=== PATIENT | male | born 1975 | race Caucasian/White ===

== ENCOUNTER 2018-04-04 07:43 | Day surgery (SDC) | payer OTHER ==
[2018-04-03 15:41] VITALS: BMI 25.4
[2018-04-04] MEDS ORDERED: MIDAZOLAM HCL 2 MG/2 ML SINGLE DOSE VIAL ONE (10:10)
[2018-04-04] MEDS ORDERED: LIDOCAINE HCL 2% JELLY 10 ML CARTRIDGE ONE (10:58)
[2018-04-04 11:07] VITALS: TEMP 97.7
[2018-04-04 11:43] VITALS: PULSE 88
[2018-04-04 11:50] VITALS: BP 131/94
--- NOTE | 2018-04-05 19:02 | PATH ---
Surgical Pathology Report Patient Name: SHAYLA HOOPER [facility]. Rec. #: [id number] /Age/Gender: 1975 (Age: 42) / M Account: [id number] Location: U-ENDOSCOPY Taken: 04/04/2018 Received: 04/04/2018 Reported: 04/05/2018 Physicians: Timoteo Gale M.D. Specimen(s) Received A: POLYP RECTUM B: POLYP DISTAL DESCENDING COLON Clinical History Anemia, rectal bleeding Postoperative diagnosis: Prolapse, hemorrhoids, polyp rectum, descending colon polyp, redundant sigmoid Final Diagnosis A. RECTUM, POLYP, POLYPECTOMY: INFLAMMATORY POLYP. B. DISTAL DESCENDING COLON, POLYPECTOMY: HYPERPLASTIC POLYP. Electronically Signed Donna Spivey M.D. Gross Description A. Received in formalin, labeled "polyp rectum" is a shaw, irregular portion of soft tissue measuring 0.4 cm. in greatest dimension. The specimen is submitted in toto in one cassette. B. Received in formalin, labeled "distal descending" is a shaw, irregular portion of soft tissue measuring 0.4 cm. in greatest dimension. The specimen is submitted in toto in one cassette. DL/04/04/2018 saudi04/04/2018
== END 2018-04-04 11:49 | disposition home or self-care (01) ==
LOC: JASU-ENDO 07:43
PROVIDERS: ATTEND Internal Medicine Gastroenterology
PROC: 0DBE8ZX Excision of Large Intestine, Via Natural or Artificial Opening Endoscopic, Diagnostic (ICD-10-PCS; 2018-04-04)
PROC: 0DBP8ZX Excision of Rectum, Via Natural or Artificial Opening Endoscopic, Diagnostic (ICD-10-PCS; principal; 2018-04-04 09:15)
DX: K92.1 Melena (principal); D12.6 Benign neoplasm of colon, unspecified; K62.1 Rectal polyp
CPT/HCPCS: 88305-TC

== ENCOUNTER 2019-01-05 12:42 | Emergency (ER) | payer OTHER ==
[2019-01-05 12:53] VITALS: BMI 30.5
--- NOTE | 2019-01-05 13:32 | PDOC ---
History of Present Illness - General Chief Complaint: Injury Stated Complaint: FACE SWELLING Time Seen by Provider: 01/05/19 13:22 History Source: Parent(s) - History of Present Illness Is this a multiple visit Asthma Patient?: No Past History - Past Medical History Allergies/Adverse Reactions: Allergies Allergy/AdvReac Type Severity Reaction Status Date / Time No Known Allergies Allergy Verified 01/05/19 12:54 Home Medications: Ambulatory Orders Cyanocobalamin [Vitamin B12 -] 100 mcg PO DAILY 04/03/18 Divalproex Sprinkle [Depakote Sprinkle -] 125 mg PO BID 04/03/18 Enalapril Maleate [Vasotec] 2.5 mg PO HS 04/03/18 Metformin HCl [Glucophage] 500 mg PO BID 04/03/18 [place]-3 Fatty Acids/Fish Oil [Fish Oil 1,000 mg Capsule] 1 each PO DAILY Rosuvastatin [Crestor -] 40 mg PO DAILY 04/03/18 predniSONE [Deltasone -] 60 mg PO DAILY 01/05/19 Anemia: Yes Asthma: No Cancer: No Cardiac Disorders: No CVA: No COPD: No CHF: No Dementia: No Diabetes: No GI Disorders: No Disorders: No HTN: Yes Hypercholesterolemia: Yes Liver Disease: Yes (FATTY LIVER) Seizures: No Thyroid Disease: No Other medical history: MENTAL RETARDATION - Psycho Social/Smoking Cessation Hx Smoking History: Never smoked Hx Alcohol Use: No Drug/Substance Use Hx: No Substance Use Type: None Hx Substance Use Treatment: No Review of Systems - Review of Systems Able to Perform ROS?: No Constitutional: No: Fever Respiratory: No: Cough, Wheezing ABD/GI: No: Diarrhea, Vomiting : No: Hematuria Integumentary: No: Rash *Physical Exam - Vital Signs Last Vital Signs Temp Pulse Resp BP Pulse Ox 98 F 109 H 18 140/95 98 01/05/19 12:48 01/05/19 12:48 01/05/19 12:48 01/05/19 12:48 01/05/19 12:48 - Physical Exam General Appearance: Yes: Appropriately Dressed HEENT: positive: Other (droop to L mouth and unable to close L eye fully in ED) Neck: positive: Supple Respiratory/Chest: positive: Lungs Clear, Normal Breath Sounds. negative: Respiratory Distress Cardiovascular: positive: Regular Rate, S1, S2 Gastrointestinal/Abdominal: positive: Soft. negative: Distended Integumentary: positive: Dry, Warm. negative: Rash Neurologic: positive: Alert, Other (mildly agitated here) ED Treatment Course - LABORATORY CBC & Chemistry Diagram: 01/05/19 14:15 01/05/19 14:15 - RADIOLOGY Radiology Studies Ordered: Category Date Time Status HEAD CT WITHOUT CONTRAST [CT] Stat CT Scan 01/05/19 13:29 Ordered Medical Decision Making - Medical Decision Making 01/05/19 13:31 43-year-old male, severe MR, NIDDM, on multiple psych meds, brought in by family for AMS. States patient was started on vatrex (1g TID) and prednisone ( 60mg daily) 4 days ago after presenting to PMD with L facial droop and inability to close L eye. Per family patient appears more agitated than usual since yesterday, since improved w/ psych meds. No fever, vomiting, diarrhea or rash. 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 Recommend if discharged, to decrease prednisone dose (currently on 60mg daily-last took yesterday am) and have pt f/u with SHAHNAZ Berman in am as d/w family 01/05/19 16:15 Labs remarkable for white count of 17, suspect most likely 2/2 to prednisone versus infection. Creatinine 1.6, no old to compare. Based on calculations creatinine clearance >52 (Pt [place]ic) but given increased agitation, will reduce valtrex dose to 1 g every 12 hours as d/w Dr Terrell. Upon discharge will have patient start tapering prednisone to 40 mg. Family aware that they will need to call his PMD first thing in the morning for further instructions. At this time patient signed out to LIOR Araujo pending CT read. 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 His kidney test was also mildly elevated. Please start tapering the prednisone to 40 mg daily and Valtrex to 1 g twice a day and call PMD in the a.m. to discuss further recommendations. If symptoms worsen, return to the ER - Post Discharge Activity
[2019-01-05] MEDS ORDERED: LORazepam 2 MG/ML SDV VIAL ONE ×2 (14:58→15:33)
[2019-01-05 15:21] LABS: BASO % 0.2 % (0-2.0); EOS % 0.1 % (0-4.5); HEMATOCRIT 45.2 % (35.4-49); HEMOGLOBIN 14.9 GM/dL (11.7-16.9); LYMPH % 20.6 % (8-40); MCH 29.6 pg (25.7-33.7); MEAN CELL VOLUME 89.7 fl (80-96); MEAN PLT VOLUME 10.8 fl (7.5-11.1); MONO % 9.9 % (3.8-10.2); NEUT % 69.2 % (42.8-82.8); PLATELET COUNT 195 K/MM3 (134-434); RBC 5.04 M/mm3 (4.00-5.60); RDW 13.8 % (11.9-15.9); WHITE BLOOD COUNT 17.6 K/mm3 (4.0-10.0)
[2019-01-05 15:49] LABS: ALBUMIN 3.7 g/dl (3.4-5.0); BILIRUBIN,TOTAL 0.1 mg/dL (0.2-1); BLOOD UREA NITROGEN 29.9 mg/dL (7-18); CALCIUM 9.6 mg/dL (8.5-10.1); CREATININE 1.6 mg/dL (0.55-1.3); TOT PROT 7.4 g/dl (6.4-8.2)
[2019-01-05 16:14] LABS: ANISOCYTOSIS 0; MACROCYTOSIS 0; OVALOCYTE 1+; PLATELET ESTIMATE NORMAL
[2019-01-05 17:11] VITALS: BP 142/80; PULSE 98; TEMP 98.1
--- NOTE | 2019-01-05 17:11 | PDOC ---
*Physical Exam - Vital Signs Last Vital Signs Temp Pulse Resp BP Pulse Ox 98 F 109 H 18 140/95 98 01/05/19 12:48 01/05/19 12:48 01/05/19 12:48 01/05/19 12:48 01/05/19 12:48 ED Treatment Course - LABORATORY CBC & Chemistry Diagram: 01/05/19 14:15 01/05/19 14:15 - ADDITIONAL ORDERS Additional order review: Laboratory Results 01/05/19 14:15 Sodium 139 Potassium 5.0 Chloride 106 Carbon Dioxide 26 Anion Gap 7 L BUN 29.9 H Creatinine 1.6 H Est GFR (CKD-EPI)AfAm 60.26 Est GFR (CKD-EPI)NonAf 51.99 Random Glucose 115 H Calcium 9.6 Total Bilirubin 0.1 L AST 7 L ALT 19 Alkaline Phosphatase 88 Total Protein 7.4 Albumin 3.7 01/05/19 14:15 RBC 5.04 MCV 89.7 MCHC 33.0 RDW 13.8 MPV 10.8 Neutrophils % 69.2 Lymphocytes % 20.6 Monocytes % 9.9 Eosinophils % 0.1 Basophils % 0.2 - Medications Given in the ED: ED Medications Discontinued Medications Generic Name Dose Route Start Last Admin Trade Name Freq PRN Reason Stop Dose Admin Lorazepam 0.5 mg 01/05/19 14:56 01/05/19 15:00 Ativan Injection - IM 01/05/19 14:57 0.5 mg ONCE ONE Administration Lorazepam 0.5 mg 01/05/19 15:35 01/05/19 15:38 Ativan Injection - IM 01/05/19 15:36 0.5 mg ONCE ONE Administration Medical Decision Making - Medical Decision Making 01/05/19 17:09 Patient endorsed to me to follow CT scan and disposition. CT reported as negative no acute findings I discussed the physical exam findings, ancillary test results and final diagnoses with the patient. I answered all of the patient's questions. The patient was satisfied with the care received and felt comfortable with the discharge plan and treatment plan. The Patient agrees to follow up with the primary care physician within 24-72 hours. 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 His kidney test was also mildly elevated. Please start tapering the prednisone to 40 mg daily and Valtrex to 1 g twice a day and call PMD in the a.m. to discuss further recommendations. If symptoms worsen, return to the ER - Post Discharge Activity
== END 2019-01-05 17:13 | disposition home or self-care (01) ==
LOC: JER 12:42
PROC: 3E023NZ Introduction of Analgesics, Hypnotics, Sedatives into Muscle, Percutaneous Approach (ICD-10-PCS; principal; 2019-01-05)
PROC: 3E023NZ Introduction of Analgesics, Hypnotics, Sedatives into Muscle, Percutaneous Approach (ICD-10-PCS; 2019-01-05)
DX: R45.1 Restlessness and agitation (principal); G51.0 Bell's palsy; F72 Severe intellectual disabilities; I10 Essential (primary) hypertension; D64.9 Anemia, unspecified; K76.0 Fatty (change of) liver, not elsewhere classified
CPT/HCPCS: 36415; 70450-TC; 80053; 85025; 99283-25

== ENCOUNTER 2019-04-19 08:15 | Emergency (ER) | payer OTHER ==
--- NOTE | 2019-04-19 08:34 | PDOC ---
History of Present Illness - General Chief Complaint: Edema Stated Complaint: EDEMA LT LEG Time Seen by Provider: 04/19/19 08:32 - History of Present Illness Initial Comments: 04/19/19 08:33 The patient denies chest pain, shortness of breath, headache and dizziness. Denies fever, chills, nausea, vomit, diarrhea and constipation. Denies dysuria, frequency, urgency and hematuria. Past History - Past Medical History Allergies/Adverse Reactions: Allergies Allergy/AdvReac Type Severity Reaction Status Date / Time prednisone Allergy Severe Verified 04/19/19 08:21 Home Medications: Ambulatory Orders Cyanocobalamin [Vitamin B12 -] 100 mcg PO DAILY 04/03/18 Divalproex Sprinkle [Depakote Sprinkle -] 125 mg PO BID 04/03/18 Enalapril Maleate [Vasotec] 2.5 mg PO HS 04/03/18 Metformin HCl [Glucophage] 500 mg PO BID 04/03/18 [place]-3 Fatty Acids/Fish Oil [Fish Oil 1,000 mg Capsule] 1 each PO DAILY 04/03/18 Rosuvastatin [Crestor -] 40 mg PO DAILY 04/03/18 predniSONE [Deltasone -] 60 mg PO DAILY 01/05/19 Anemia: Yes Asthma: No Cancer: No Cardiac Disorders: No CVA: No COPD: No CHF: No Dementia: No Diabetes: No GI Disorders: No Disorders: No HTN: Yes Hypercholesterolemia: Yes Liver Disease: Yes (FATTY LIVER) Seizures: No Thyroid Disease: No - Psycho Social/Smoking Cessation Hx Smoking History: Never smoked Hx Alcohol Use: No Drug/Substance Use Hx: No Substance Use Type: None Hx Substance Use Treatment: No Review of Systems - Review of Systems Comments:: 04/19/19 08:33 GENERAL/CONSTITUTIONAL: No fever or chills. No weakness. HEAD, EYES, EARS, NOSE AND THROAT: No change in vision. No ear pain or discharge. No sore throat. CARDIOVASCULAR: No chest pain or shortness of breath RESPIRATORY: No cough, wheezing, or hemoptysis. GASTROINTESTINAL: No nausea, vomiting, diarrhea or constipation. GENITOURINARY: No dysuria, frequency, or change in urination. MUSCULOSKELETAL: No joint or muscle swelling or pain. No neck or back pain. SKIN: No rash NEUROLOGIC: No headache, vertigo, loss of consciousness, or change in strength/sensation. ENDOCRINE: No increased thirst. No abnormal weight change HEMATOLOGIC/LYMPHATIC: No anemia, easy bleeding, or history of blood clots. ALLERGIC/IMMUNOLOGIC: No hives or skin allergy. *Physical Exam - Vital Signs Last Vital Signs Temp Pulse Resp BP Pulse Ox 98.1 F 124 H 18 146/90 97 04/19/19 08:19 04/19/19 08:19 04/19/19 08:19 04/19/19 08:19 04/19/19 08:19 - Physical Exam 04/19/19 08:33 GENERAL: Awake, alert, and fully oriented, in no acute distress HEAD: No signs of trauma, normocephalic, atraumatic EYES: PERRLA, EOMI, sclera anicteric, conjunctiva clear ENT: Auricles normal inspection, hearing grossly normal, nares patent, oropharynx clear without exudates. Moist mucosa NECK: Normal ROM, supple, no lymphadenopathy, JVD, or masses LUNGS: No distress, speaks full sentences, clear to auscultation bilaterally HEART: Regular rate and rhythm, normal S1 and S2, no murmurs, rubs or gallops, peripheral pulses normal and equal bilaterally. ABDOMEN: Soft, nontender, normoactive bowel sounds. No guarding, no rebound. No masses EXTREMITIES: Normal inspection, Normal range of motion, no edema. No clubbing or cyanosis. NEUROLOGICAL: Cranial nerves II through XII grossly intact. Normal speech, normal gait, no focal sensorimotor deficits SKIN: Warm, Dry, normal turgor, no rashes or lesions noted. Discharge - Follow up/Referral Referrals: Sara Banegas MD [Primary Care Provider] - - Patient Discharge Instructions - Post Discharge Activity
[2019-04-19 08:35] VITALS: TEMP 98.1; BMI 24.7
[2019-04-19] MEDS ORDERED: KETAMINE HCL 200 MG/20 ML VIAL IVPUSH ONE (08:46)
[2019-04-19] MEDS ORDERED: KETAMINE HCL 500 MG/10 ML VIAL IM ONE ×2 (08:50→09:43)
[2019-04-19] MEDS ORDERED: KETAMINE HCL 500 MG/10 ML VIAL ONE (09:03)
--- NOTE | 2019-04-19 09:43 | PDOC ---
History of Present Illness - General Chief Complaint: Edema Stated Complaint: EDEMA LT LEG Time Seen by Provider: 04/19/19 08:32 - History of Present Illness Initial Comments: 04/19/19 08:52 43 yo M severe MR, diabetes, HLD, sent by PCP for L leg swelling. All history per father and mother, patient unable to provide history or ROS. Swelling has been present for the past 3 weeks, and they have tried to get outpatient ultrasound, but patient has been too agitated to get the ultrasound. Sent today for help with agitation. Unable to get ROS. Past History - Past Medical History Allergies/Adverse Reactions: Allergies Allergy/AdvReac Type Severity Reaction Status Date / Time prednisone Allergy Severe Verified 04/19/19 08:21 Home Medications: Ambulatory Orders Cyanocobalamin [Vitamin B12 -] 100 mcg PO DAILY 04/03/18 Divalproex Sprinkle [Depakote Sprinkle -] 125 mg PO BID 04/03/18 Enalapril Maleate [Vasotec] 2.5 mg PO HS 04/03/18 Metformin HCl [Glucophage] 500 mg PO BID 04/03/18 [place]-3 Fatty Acids/Fish Oil [Fish Oil 1,000 mg Capsule] 1 each PO DAILY 04/03/18 Rosuvastatin [Crestor -] 40 mg PO DAILY 04/03/18 predniSONE [Deltasone -] 60 mg PO DAILY 01/05/19 Anemia: Yes Asthma: No Cancer: No Cardiac Disorders: No CVA: No COPD: No CHF: No Dementia: No Diabetes: No GI Disorders: No Disorders: No HTN: Yes Hypercholesterolemia: Yes Liver Disease: Yes (FATTY LIVER) Seizures: No Thyroid Disease: No - Psycho Social/Smoking Cessation Hx Smoking History: Never smoked Hx Alcohol Use: No Drug/Substance Use Hx: No Substance Use Type: None Hx Substance Use Treatment: No Review of Systems - Review of Systems Comments:: 04/19/19 09:47 Unable to assess ROS 2/2 severe MR. *Physical Exam - Vital Signs Last Vital Signs Temp Pulse Resp BP Pulse Ox 98.1 F 124 H 18 146/90 97 04/19/19 08:19 04/19/19 08:19 04/19/19 08:19 04/19/19 08:19 04/19/19 08:19 - Physical Exam 04/19/19 09:48 Gen: agitated Neuro: PERRLA, otherwise unable to cooperate with neurological exam HEENT: atraumatic, normocephalic Neck: trachea midline, supple CV: regular rate, regular rhythm, no murmurs, rubs, or gallops Pulm: CTA b/l, no wheezing Abd: soft, non-distended, non-tender MSK: full ROM, intact pulses Extr: L calf swelling without rubor or calor, no deformities Skin: warm, dry ED Treatment Course - RADIOLOGY Radiology Studies Ordered: Category Date Time Status DUPLEX VASCUL US-1 LEG [US] Stat Ultrasound 04/19/19 08:51 Ordered Medical Decision Making - Medical Decision Making 04/19/19 09:49 R/o L DVT. Ddx includes Sylvester's cyst, cellulitis less likely considering lack of rubor or calor. - ketamine - Duplex L leg 04/19/19 10:49 US without DVT, will dc for further outpatient management once patient able to walk. Discharge - Discharge Information Problems reviewed: Yes Clinical Impression/Diagnosis: Left leg swelling Condition: Stable Disposition: HOME - Admission No - Follow up/Referral Referrals: Sara Banegas MD [Primary Care Provider] - - Patient Discharge Instructions Additional Instructions: You were seen with left leg swelling. An ultrasound was performed, which did not show a clot. Please follow up with your primary care doctor within one week. Return to the ED if you develop new or worsening symptoms. - Post Discharge Activity
[2019-04-19] MEDS ORDERED: KETAMINE HCL 500 MG/10 ML VIAL IV ONE (09:58)
--- NOTE | 2019-04-19 10:44 | PDOC ---
Attending Attestation - Resident Resident Name: Dashawn Smith - ED Attending Attestation I have performed the following: I have examined & evaluated the patient, The case was reviewed & discussed with the resident, I agree w/resident's findings & plan, Exceptions are as noted - HPI HPI: 04/19/19 10:42 43-year-old male with severe developmental delay, hyperlipidemia, history of self-injurious behavior presents for atraumatic left lower extremity edema which was unable to be evaluated by an outpatient ultrasound due to patient agitation. - Physicial Exam PE: 04/19/19 10:42 Patient is awake and alert, nontoxic-appearing, in no distress Microcephalic, abrasions are noted to the bridge of the nose and forehead; + Left facial edema over the angle of the mandible consistent with soft tissue swelling PERRDANIEL, EOMI CTA RRR + Left lower extremity edema (+1) - Medical Decision Making 04/19/19 10:44 43-year-old male with severe developmental delay, hyperlipidemia, self-injurious behavior presents with left lower extremity edema. We discussed the risk and benefit of administration of IM ketamine to the patient's family. They consented. Patient underwent Doppler ultrasound left lower extremity which showed no evidence of DVT or Sylvester's cyst. Patient tolerated procedure well. Will discharge.
[2019-04-19 10:56] VITALS: BP 141/96; PULSE 108
== END 2019-04-19 11:12 | disposition home or self-care (01) ==
LOC: JER 08:15
PROC: 3E023BZ Introduction of Anesthetic Agent into Muscle, Percutaneous Approach (ICD-10-PCS; principal; 2019-04-19)
DX: R60.0 Localized edema (principal); F72 Severe intellectual disabilities; Z91.5 Personal history of self-harm; R45.1 Restlessness and agitation; E78.5 Hyperlipidemia, unspecified; Z88.8 Allergy status to other drugs, medicaments and biological substances
CPT/HCPCS: 93971-TC; 99284-25

== ENCOUNTER 2021-07-16 04:31 | Inpatient (IN) | payer OTHER ==
[2021-07-16] MEDS ORDERED: HALOPERIDOL LACTATE 5 MG/ML IM ONE (04:53)
[2021-07-16] MEDS ORDERED: LORazepam 2 MG/ML SDV VIAL IM ONE (04:53)
[2021-07-16] MEDS ORDERED: HALOPERIDOL LACTATE 5 MG/ML ONE (04:55)
[2021-07-16] MEDS ORDERED: SODIUM CHLORIDE 0.9% 500 ML INFUS.BAG IV ONE (05:30)
[2021-07-16 06:55] LABS: HEMATOCRIT 28.1 % (35.4-49); HEMOGLOBIN 9.2 GM/dL (11.7-16.9); MCH 31.5 pg (25.7-33.7); MCHC 32.9 g/dl (32.0-35.9); MEAN CELL VOLUME 95.8 fl (80-96); MEAN PLT VOLUME 10.1 fl (7.5-11.1); PLATELET COUNT 271 10^3/uL (134-434); RBC 2.93 M/mm3 (4.00-5.60); RDW 14.7 % (11.9-15.9); WHITE BLOOD COUNT 12.2 K/mm3 (4.0-10.0)
[2021-07-16 07:01] LABS: EPI CELLS 7 /uL (0-25.1); HYALINE CASTS 9 /uL (0-3.1); URINE APPEARANCE CLOUDY; URINE BACTERIA 0 /uL (0-1359); URINE BILIRUBIN 1+ (NEGATIVE); URINE COLOR DK YELLOW; URINE GLUCOSE (UA) NEGATIVE (NEGATIVE); URINE KETONE TRACE (NEGATIVE); URINE LEUK ESTERASE NEGATIVE (NEGATIVE); URINE NITRITE NEGATIVE (NEGATIVE); URINE PROTEIN 1+ (NEGATIVE); URINE WBC 13 /uL (0-25.8)
[2021-07-16 07:22] LABS: ALBUMIN 2.1 g/dl (3.4-5.0); CALCIUM 7.8 mg/dL (8.5-10.1)
[2021-07-16 07:24] LABS: CREATININE 2.8 mg/dL (0.55-1.3)
[2021-07-16 07:26] LABS: BILIRUBIN,TOTAL 0.8 mg/dL (0.2-1)
[2021-07-16 07:32] LABS: BLOOD UREA NITROGEN 52.4 mg/dL (7-18)
[2021-07-16 09:05] LABS: URINE RBC 48.5 /uL (0-23.9)
[2021-07-16 10:02] LABS: PLATELET ESTIMATE NORMAL
[2021-07-16] MEDS ORDERED: SODIUM CHLORIDE 1,000 ML IV SCH (11:00)
[2021-07-16] MEDS: INSULIN SLIDING SCALE (NOVOLOG) 1 VIAL SQ SCH ×3 (12:19→23:33)
[2021-07-16] MEDS ORDERED: PANTOPRAZOLE SODIUM 40 MG VIAL ONE (12:21)
[2021-07-16] MEDS: PANTOPRAZOLE SODIUM 40 MG VIAL IVPUSH SCH (12:50)
[2021-07-16 13:46] LABS: HEMOGLOBIN 10.2 GM/dL (11.7-16.9); MCH 31.4 pg (25.7-33.7); MCHC 32.9 g/dl (32.0-35.9); MEAN CELL VOLUME 95.4 fl (80-96); MEAN PLT VOLUME 9.3 fl (7.5-11.1); PLATELET COUNT 300 10^3/uL (134-434); RBC 3.25 M/mm3 (4.00-5.60); RDW 14.9 % (11.9-15.9); WHITE BLOOD COUNT 13.9 K/mm3 (4.0-10.0)
[2021-07-16 14:39] LABS: ALBUMIN 2.3 g/dl (3.4-5.0); BLOOD UREA NITROGEN 48.9 mg/dL (7-18); CALCIUM 8.4 mg/dL (8.5-10.1)
[2021-07-16 14:43] LABS: BILIRUBIN,TOTAL 0.9 mg/dL (0.2-1); CREATININE 2.2 mg/dL (0.55-1.3)
[2021-07-16 14:45] LABS: TOT PROT 5.5 g/dl (6.4-8.2)
[2021-07-16] MEDS: SODIUM CHLORIDE 1,000 ML IV SCH (17:00)
[2021-07-17] MEDS: PANTOPRAZOLE SODIUM 40 MG VIAL IVPUSH SCH ×3 (00:58→21:50)
[2021-07-17 01:35] VITALS: BMI 26.2
[2021-07-17] MEDS: SODIUM CHLORIDE 1,000 ML IV SCH ×2 (05:50→17:10)
[2021-07-17] MEDS: INSULIN SLIDING SCALE (NOVOLOG) 1 VIAL SQ SCH ×4 (06:03→21:57)
[2021-07-17 09:59] LABS: HEMATOCRIT 29.1 % (35.4-49); HEMOGLOBIN 9.6 GM/dL (11.7-16.9); MCH 31.7 pg (25.7-33.7); MCHC 33.1 g/dl (32.0-35.9); MEAN CELL VOLUME 95.7 fl (80-96); MEAN PLT VOLUME 9.4 fl (7.5-11.1); PLATELET COUNT 290 10^3/uL (134-434); RBC 3.04 M/mm3 (4.00-5.60); RDW 14.6 % (11.9-15.9); WHITE BLOOD COUNT 13.9 K/mm3 (4.0-10.0)
[2021-07-17 10:20] LABS: ALBUMIN 2.2 g/dl (3.4-5.0); CALCIUM 8.8 mg/dL (8.5-10.1)
[2021-07-17 10:23] LABS: BILIRUBIN,DIRECT 0.6 mg/dL (0.0-0.2); CREATININE 1.5 mg/dL (0.55-1.3)
[2021-07-17 10:25] LABS: BILIRUBIN,TOTAL 0.9 mg/dL (0.2-1); TOT PROT 5.4 g/dl (6.4-8.2)
[2021-07-18] MEDS: INSULIN SLIDING SCALE (NOVOLOG) 1 VIAL SQ SCH ×4 (06:08→23:00)
[2021-07-18] MEDS: SODIUM CHLORIDE 1,000 ML IV SCH ×2 (06:13→16:47)
[2021-07-18 08:38] LABS: HEMATOCRIT 30.5 % (35.4-49); MCH 31.6 pg (25.7-33.7); MCHC 32.7 g/dl (32.0-35.9); MEAN CELL VOLUME 96.7 fl (80-96); MEAN PLT VOLUME 9.2 fl (7.5-11.1); PLATELET COUNT 309 10^3/uL (134-434); RBC 3.15 M/mm3 (4.00-5.60); RDW 15.5 % (11.9-15.9); WHITE BLOOD COUNT 10.8 K/mm3 (4.0-10.0)
[2021-07-18 09:21] LABS: ALBUMIN 2.3 g/dl (3.4-5.0); BLOOD UREA NITROGEN 28.3 mg/dL (7-18); CREATININE 1.1 mg/dL (0.55-1.3)
[2021-07-18 09:22] LABS: BILIRUBIN,TOTAL 0.8 mg/dL (0.2-1); CALCIUM 9.1 mg/dL (8.5-10.1); TOT PROT 5.8 g/dl (6.4-8.2)
[2021-07-18] MEDS: DIVALPROEX SODIUM 125 MG SPRINKLE CAPS PO SCH ×4 (10:38→22:54)
[2021-07-18] MEDS: PANTOPRAZOLE SODIUM 40 MG VIAL IVPUSH SCH ×2 (10:38→22:54)
[2021-07-18 15:17] LABS: PLATELET ESTIMATE ADEQUATE
[2021-07-19] MEDS: INSULIN SLIDING SCALE (NOVOLOG) 1 VIAL SQ SCH ×4 (06:01→21:14)
[2021-07-19] MEDS: PANTOPRAZOLE SODIUM 40 MG VIAL IVPUSH SCH ×3 (10:04→21:21)
[2021-07-19] MEDS: DIVALPROEX SODIUM 125 MG SPRINKLE CAPS PO SCH ×2 (10:04→21:13)
[2021-07-19 10:48] LABS: HEMOGLOBIN 10.4 GM/dL (11.7-16.9); MCH 30.5 pg (25.7-33.7); MCHC 31.6 g/dl (32.0-35.9); MEAN CELL VOLUME 96.6 fl (80-96); MEAN PLT VOLUME 9.4 fl (7.5-11.1); PLATELET COUNT 337 10^3/uL (134-434); RBC 3.42 M/mm3 (4.00-5.60); RDW 15.5 % (11.9-15.9); WHITE BLOOD COUNT 12.8 K/mm3 (4.0-10.0)
[2021-07-19 11:12] LABS: CALCIUM 9.3 mg/dL (8.5-10.1)
[2021-07-19 11:14] LABS: ALBUMIN 2.3 g/dl (3.4-5.0); BLOOD UREA NITROGEN 22.2 mg/dL (7-18)
[2021-07-19 11:15] LABS: CREATININE 0.9 mg/dL (0.55-1.3)
[2021-07-19 11:16] LABS: BILIRUBIN,TOTAL 0.9 mg/dL (0.2-1); TOT PROT 5.8 g/dl (6.4-8.2)
[2021-07-20] MEDS: INSULIN SLIDING SCALE (NOVOLOG) 1 VIAL SQ SCH ×4 (06:36→22:54)
[2021-07-20 09:57] LABS: HEMATOCRIT 31.9 % (35.4-49); HEMOGLOBIN 10.3 GM/dL (11.7-16.9); MCH 30.8 pg (25.7-33.7); MCHC 32.1 g/dl (32.0-35.9); MEAN CELL VOLUME 95.7 fl (80-96); MEAN PLT VOLUME 8.8 fl (7.5-11.1); PLATELET COUNT 325 10^3/uL (134-434); RBC 3.33 M/mm3 (4.00-5.60); RDW 15.5 % (11.9-15.9); WHITE BLOOD COUNT 12.8 K/mm3 (4.0-10.0)
[2021-07-20 10:17] LABS: CALCIUM 9.3 mg/dL (8.5-10.1)
[2021-07-20 10:19] LABS: ALBUMIN 2.3 g/dl (3.4-5.0)
[2021-07-20 10:21] LABS: BILIRUBIN,TOTAL 0.8 mg/dL (0.2-1); BLOOD UREA NITROGEN 21.7 mg/dL (7-18); TOT PROT 5.8 g/dl (6.4-8.2)
[2021-07-20] MEDS: DIVALPROEX SODIUM 125 MG SPRINKLE CAPS PO SCH ×2 (10:39→22:54)
[2021-07-20] MEDS: PANTOPRAZOLE SODIUM 40 MG VIAL IVPUSH SCH ×2 (10:39→22:55)
[2021-07-21] MEDS: INSULIN SLIDING SCALE (NOVOLOG) 1 VIAL SQ SCH ×4 (06:47→21:12)
[2021-07-21] MEDS: PANTOPRAZOLE SODIUM 40 MG VIAL IVPUSH SCH ×2 (10:43→21:10)
[2021-07-21] MEDS: DIVALPROEX SODIUM 125 MG SPRINKLE CAPS PO SCH ×2 (10:49→21:10)
[2021-07-21] MEDS ORDERED: ACETAMINOPHEN 325 MG TABLET (FP) PO PRN (16:38)
[2021-07-21] MEDS ORDERED: ACETAMINOPHEN 1000 MG/100 ML BAG IVPB ONE (16:56)
[2021-07-21] MEDS ORDERED: PIPERACILLIN/TAZOBACTAM 3.375 GM VIAL IVPB ONE (17:27)
[2021-07-21] MEDS ORDERED: DEXTROSE 5%-WATER - 50 ML IVPB ONE (17:27)
[2021-07-21] MEDS: PIPERACILLIN/TAZOB 3.375 GM 3.375 GM in DEXTROSE 5%-WATER - 50 ML IVPB SCH (18:19)
[2021-07-21] MEDS: DEXTROSE 5%-0.45% SALINE 1,000 ML IV SCH (20:25)
[2021-07-22] MEDS ORDERED: PIPERACILLIN/TAZOBACTAM 3.375 GM VIAL IVPB ONE ×3 (00:41→17:10)
[2021-07-22] MEDS ORDERED: DEXTROSE 5%-WATER - 50 ML IVPB ONE ×3 (00:41→17:10)
[2021-07-22] MEDS: PIPERACILLIN/TAZOB 3.375 GM 3.375 GM in DEXTROSE 5%-WATER - 50 ML IVPB SCH ×3 (01:05→17:19)
[2021-07-22] MEDS: INSULIN SLIDING SCALE (NOVOLOG) 1 VIAL SQ SCH ×4 (06:17→23:53)
[2021-07-22 09:33] LABS: BASO % 0.9 % (0-2.0); HEMATOCRIT 28.7 % (35.4-49); HEMOGLOBIN 9.4 GM/dL (11.7-16.9); MCH 31.4 pg (25.7-33.7); MCHC 32.7 g/dl (32.0-35.9); MEAN PLT VOLUME 9.1 fl (7.5-11.1); MONO % 13.7 % (3.8-10.2); NEUT % 66.4 % (42.8-82.8); PLATELET COUNT 295 10^3/uL (134-434); RBC 2.99 M/mm3 (4.00-5.60); RDW 16.4 % (11.9-15.9); WHITE BLOOD COUNT 13.8 K/mm3 (4.0-10.0)
[2021-07-22 09:59] LABS: CALCIUM 8.7 mg/dL (8.5-10.1)
[2021-07-22 10:00] LABS: ALBUMIN 2.1 g/dl (3.4-5.0); BLOOD UREA NITROGEN 17.6 mg/dL (7-18)
[2021-07-22 10:03] LABS: CREATININE 1.1 mg/dL (0.55-1.3)
[2021-07-22 10:05] LABS: BILIRUBIN,TOTAL 1.2 mg/dL (0.2-1); TOT PROT 5.6 g/dl (6.4-8.2)
[2021-07-22] MEDS: PANTOPRAZOLE SODIUM 40 MG VIAL IVPUSH SCH ×2 (10:37→23:33)
[2021-07-22] MEDS: DIVALPROEX SODIUM 125 MG SPRINKLE CAPS PO SCH ×2 (10:37→23:33)
[2021-07-22] MEDS ORDERED: ACETAMINOPHEN 1000 MG/100 ML BAG IVPB PRN (12:52)
[2021-07-22] MEDS: DEXTROSE 5%-0.45% SALINE 1,000 ML IV SCH ×2 (14:44→23:20)
[2021-07-22 15:39] LABS: EPI CELLS 3 /uL (0-25.1); HYALINE CASTS 0 /uL (0-3.1); PH,URINE 6.5 (5.0-8.0); URINE APPEARANCE TURBID; URINE BACTERIA 7464 /uL (0-1359); URINE BILIRUBIN 2+ (NEGATIVE); URINE COLOR DK YELLOW; URINE GLUCOSE (UA) NEGATIVE (NEGATIVE); URINE KETONE NEGATIVE (NEGATIVE); URINE LEUK ESTERASE 2+ (NEGATIVE); URINE NITRITE POSITIVE (NEGATIVE); URINE PROTEIN TRACE (NEGATIVE); URINE UROBILINOGEN 4.0 E.U/dl mg/dL (0.2-1.0); URINE WBC 25 /uL (0-25.8)
[2021-07-22 15:49] LABS: URINE RBC 87 /uL (0-23.9); YEAST NEGATIVE (NEGATIVE)
[2021-07-23] MEDS ORDERED: PIPERACILLIN/TAZOBACTAM 3.375 GM VIAL IVPB ONE ×3 (02:29→17:07)
[2021-07-23] MEDS ORDERED: DEXTROSE 5%-WATER - 50 ML IVPB ONE ×3 (02:29→17:07)
[2021-07-23] MEDS: PIPERACILLIN/TAZOB 3.375 GM 3.375 GM in DEXTROSE 5%-WATER - 50 ML IVPB SCH ×3 (02:52→17:40)
[2021-07-23] MEDS: INSULIN SLIDING SCALE (NOVOLOG) 1 VIAL SQ SCH ×4 (06:19→22:08)
[2021-07-23] MEDS: DEXTROSE 5%-0.45% SALINE 1,000 ML IV SCH ×2 (06:21→22:08)
[2021-07-23] MEDS: PANTOPRAZOLE SODIUM 40 MG VIAL IVPUSH SCH ×2 (10:09→22:08)
[2021-07-23] MEDS: DIVALPROEX SODIUM 125 MG SPRINKLE CAPS PO SCH ×2 (10:09→22:08)
[2021-07-24] MEDS ORDERED: DEXTROSE 5%-WATER - 50 ML IVPB ONE ×3 (02:07→17:01)
[2021-07-24] MEDS ORDERED: PIPERACILLIN/TAZOBACTAM 3.375 GM VIAL IVPB ONE ×3 (02:07→17:01)
[2021-07-24] MEDS: PIPERACILLIN/TAZOB 3.375 GM 3.375 GM in DEXTROSE 5%-WATER - 50 ML IVPB SCH ×3 (02:14→17:20)
[2021-07-24] MEDS: INSULIN SLIDING SCALE (NOVOLOG) 1 VIAL SQ SCH ×4 (06:36→23:26)
[2021-07-24] MEDS: PANTOPRAZOLE SODIUM 40 MG VIAL IVPUSH SCH ×2 (09:14→23:27)
[2021-07-24] MEDS: DIVALPROEX SODIUM 125 MG SPRINKLE CAPS PO SCH ×2 (09:14→23:26)
[2021-07-24 09:20] LABS: HEMATOCRIT 30.1 % (35.4-49); HEMOGLOBIN 9.8 GM/dL (11.7-16.9); MCH 30.9 pg (25.7-33.7); MCHC 32.5 g/dl (32.0-35.9); MEAN CELL VOLUME 94.9 fl (80-96); MEAN PLT VOLUME 8.8 fl (7.5-11.1); PLATELET COUNT 313 10^3/uL (134-434); RBC 3.17 M/mm3 (4.00-5.60); RDW 15.8 % (11.9-15.9); WHITE BLOOD COUNT 11.1 K/mm3 (4.0-10.0)
[2021-07-24 09:51] LABS: CALCIUM 8.5 mg/dL (8.5-10.1)
[2021-07-24 09:52] LABS: ALBUMIN 1.9 g/dl (3.4-5.0); BLOOD UREA NITROGEN 7.6 mg/dL (7-18)
[2021-07-24 09:56] LABS: BILIRUBIN,TOTAL 0.8 mg/dL (0.2-1); TOT PROT 5.6 g/dl (6.4-8.2)
[2021-07-24 10:49] LABS: ANISOCYTOSIS 0; HELMET CELLS 0; HOWELL-JOLLY BODIES 0; MACROCYTOSIS 0; OVALOCYTE 0; ROULEAU 0; SICKELED CELLS 0; TARGET CELLS 0; TEAR DROP CELLS 0; TOXIC GRANULATION 0
[2021-07-24] MEDS: DEXTROSE 5%-0.45% SALINE 1,000 ML IV SCH (13:11)
[2021-07-25] MEDS: DEXTROSE 5%-0.45% SALINE 1,000 ML IV SCH ×4 (00:17→20:26)
[2021-07-25] MEDS ORDERED: VALPROATE SODIUM 500 MG/5 ML VIAL IVPB ONE ×2 (00:25→10:17)
[2021-07-25] MEDS: DIVALPROEX SODIUM 125 MG SPRINKLE CAPS PO SCH ×4 (00:33→21:10)
[2021-07-25] MEDS ORDERED: VALPROATE SODIUM INJECTION 125 MG in SODIUM CHLORIDE 50 ML IVPB ONE (00:45)
[2021-07-25] MEDS ORDERED: PIPERACILLIN/TAZOBACTAM 3.375 GM VIAL IVPB ONE ×2 (01:23→09:29)
[2021-07-25] MEDS ORDERED: DEXTROSE 5%-WATER - 50 ML IVPB ONE ×2 (01:23→09:29)
[2021-07-25] MEDS: PIPERACILLIN/TAZOB 3.375 GM 3.375 GM in DEXTROSE 5%-WATER - 50 ML IVPB SCH ×2 (01:32→11:00)
[2021-07-25] MEDS: INSULIN SLIDING SCALE (NOVOLOG) 1 VIAL SQ SCH ×4 (06:41→21:59)
[2021-07-25] MEDS: PANTOPRAZOLE SODIUM 40 MG VIAL IVPUSH SCH ×3 (10:05→21:49)
[2021-07-25] MEDS ORDERED: VALPROATE SODIUM INJECTION 250 MG in DEXTROSE 5%-WATER - 50 ML IVPB ONE (11:15)
[2021-07-26] MEDS: INSULIN SLIDING SCALE (NOVOLOG) 1 VIAL SQ SCH ×4 (05:59→21:35)
[2021-07-26] MEDS: DIVALPROEX SODIUM 125 MG SPRINKLE CAPS PO SCH ×2 (10:13→21:27)
[2021-07-26] MEDS: PANTOPRAZOLE SODIUM 40 MG VIAL IVPUSH SCH (10:14)
[2021-07-26] MEDS: DEXTROSE 5%-0.45% SALINE 1,000 ML IV SCH (21:27)
[2021-07-26] MEDS: ROSUVASTATIN CA 5 MG TABLET PO SCH (21:27)
[2021-07-26] MEDS: QUEtiapine FUMARATE 25 MG TABLET PO SCH (21:27)
[2021-07-27] MEDS: INSULIN SLIDING SCALE (NOVOLOG) 1 VIAL SQ SCH ×4 (06:19→21:59)
[2021-07-27] MEDS: PANTOPRAZOLE 40 MG TABLET PO SCH (10:33)
[2021-07-27] MEDS: DIVALPROEX SODIUM 125 MG SPRINKLE CAPS PO SCH ×2 (10:33→21:42)
[2021-07-27] MEDS: QUEtiapine FUMARATE 25 MG TABLET PO SCH ×2 (10:33→21:42)
[2021-07-27] MEDS: DEXTROSE 5%-0.45% SALINE 1,000 ML IV SCH (20:53)
[2021-07-27] MEDS: ROSUVASTATIN CA 5 MG TABLET PO SCH (21:42)
[2021-07-28] MEDS: INSULIN SLIDING SCALE (NOVOLOG) 1 VIAL SQ SCH ×4 (06:28→22:24)
[2021-07-28] MEDS: DIVALPROEX SODIUM 125 MG SPRINKLE CAPS PO SCH ×2 (10:43→22:16)
[2021-07-28] MEDS: QUEtiapine FUMARATE 25 MG TABLET PO SCH ×2 (10:43→22:16)
[2021-07-28] MEDS: PANTOPRAZOLE 40 MG TABLET PO SCH (10:44)
[2021-07-28] MEDS ORDERED: QUEtiapine FUMARATE 25 MG TABLET PO ONE (18:15)
[2021-07-28] MEDS: DEXTROSE 5%-0.45% SALINE 1,000 ML IV SCH (21:26)
[2021-07-28] MEDS: ROSUVASTATIN CA 5 MG TABLET PO SCH (22:16)
[2021-07-29] MEDS ORDERED: HALOPERIDOL LACTATE 5 MG/ML IM ONE (04:05)
[2021-07-29] MEDS: INSULIN SLIDING SCALE (NOVOLOG) 1 VIAL SQ SCH ×2 (07:35→11:10)
[2021-07-29 09:02] VITALS: BP 149/77; PULSE 104; TEMP 98.4
[2021-07-29] MEDS: PANTOPRAZOLE 40 MG TABLET PO SCH (09:30)
[2021-07-29] MEDS: DIVALPROEX SODIUM 125 MG SPRINKLE CAPS PO SCH (09:30)
[2021-07-29] MEDS: QUEtiapine FUMARATE 25 MG TABLET PO SCH (09:30)
== END 2021-07-29 15:20 | DRG 557 ==
LOC: JER 04:31 → JERBED 08:26 → J6S 07-17 00:05
PROVIDERS: ADMIT Family Medicine; ATTEND Family Medicine
DX: M62.82 Rhabdomyolysis (principal); U07.1 COVID-19; J12.82 Pneumonia due to coronavirus disease 2019; N17.9 Acute kidney failure, unspecified; F72 Severe intellectual disabilities; G93.49 Other encephalopathy; E78.5 Hyperlipidemia, unspecified; E11.9 Type 2 diabetes mellitus without complications; R79.89 Other specified abnormal findings of blood chemistry; D72.829 Elevated white blood cell count, unspecified; R45.1 Restlessness and agitation; M41.80 Other forms of scoliosis, site unspecified; E87.5 Hyperkalemia; N20.0 Calculus of kidney; R77.8 Other specified abnormalities of plasma proteins; G40.909 Epilepsy, unspecified, not intractable, without status epilepticus; M60.88 Other myositis, other site; R50.9 Fever, unspecified; T50.995A Adverse effect of other drugs, medicaments and biological substances, initial encounter; K71.9 Toxic liver disease, unspecified; R33.8 Other retention of urine
CPT/HCPCS: 0241U-QW; 36415; 71045-TC-FY; 74176-TC; 76705-TC; 80048; 80053; 80076; 81003; 82550; 82553; 82962; 83615; 83874; 84443; 84484; 85025; 85027; 86140; 86704; 86708; 86803; 87040; 87086; 87340; 87517; 93005; 93010; 93970-TC; 97116-GP; 97162-GP; 99285-25; C9803-CS; U0003; U0005